=== PATIENT | male | born 1965 | race African-American/Black ===

== ENCOUNTER → 2020-12-29 | Outpatient (CLI) | payer BC ==
--- NOTE | 2020-12-29 08:28 | RAD ---
INDICATION: Reason: HEPATOMEGALY / Spl. Instructions: / History: COMPARISON: None. TECHNIQUE: Grayscale and color ultrasound images obtained through the abdomen. FINDINGS: Liver: Echogenic. Mildly prominent in size. Gallbladder: Gallstones. Distended appearance measuring greater than 10 cm x 2.8 cm Common Bile Duct: Not dilated. Pancreas: Not well evaluated secondary to overlying bowel gas. Right Kidney: No hydronephrosis. 45 mm cyst Left Kidney: No hydronephrosis. Spleen: Mildly prominent in size measuring up to 125 mm Aorta/IVC: Calcific atherosclerosis. IMPRESSION: * Liver and spleen are mildly prominent in size. * Gallbladder is dilated with some stones within. Would correlate with symptoms. * Right renal cyst. Electronically signed by: Carlos A Mckeon MD (12/29/2020 8:25 AM) [id number]
== END ==
LOC: US 07:07
PROVIDERS: ATTEND Family Medicine
DX: K80.20 Calculus of gallbladder without cholecystitis without obstruction (principal); R16.0 Hepatomegaly, not elsewhere classified; N28.1 Cyst of kidney, acquired; I70.0 Atherosclerosis of aorta
CPT/HCPCS: 76700